=== PATIENT | female | born 2000 | race Two or more races ===

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

== ENCOUNTER 2022-08-28 10:02 | Emergency (ER) | payer MEDICAID ==
[~2022-08-28] VITALS: Ht 165.1 cm; Wt 53.3 kg
[2022-08-28 10:40] VITALS: BP 131/76
[2022-08-28 11:55] LABS: Basophils # (auto) 0 10 ^3/uL (0-0.2); Basophils % (auto) 0.3 % (0.0-2.0); Eosinophils # (auto) 0 10 ^3/uL (0-0.8); Hematocrit 35.7 % (36.0-46.0); Hemoglobin 12.4 g/dL (12.2-16.2); Lymphocytes # (auto) 0.4 10 ^3/uL (0.4-5.4); Lymphocytes % (auto) 3.8 % (10.0-50.0); Mean Corpuscular Hgb Conc. 34.7 g/dL (32.0-36.0); Mean Corpuscular Volume 92.2 fL (80.0-100.0); Monocytes # (auto) 0.1 10 ^3/uL (0-1.3); Monocytes % (auto) 1.3 % (0.0-12.0); Neutrophils # (auto) 10.5 10 ^3/uL (1.6-8.6); Neutrophils % (auto) 94.6 % (37.0-80.0); Red Blood Cells 3.88 10^6/uL (4.0-5.20); Red Cell Distribution Width 13.2 % (11.8-14.3); White Blood Cell 11.1 10^3/uL (4.4-10.8)
[2022-08-28] MEDS ORDERED: METOCLOPRAMIDE HCL 5MG/ml INJ 2ml VIAL IV ONE (12:15)
[2022-08-28] MEDS ORDERED: PYRIDOXINE HCL 50 MG TAB PO SCH (12:15)
[2022-08-28] MEDS ORDERED: LIDOCAINE VISCOUS 2% 15ML UD PO ONE (12:15)
[2022-08-28] MEDS ORDERED: D5W/SOD CHLO 0.9% 1,000 ML IV ONE (12:15)
[2022-08-28 12:23] LABS: Albumin 4.2 g/dL (3.4-5.0); Calcium 9.3 mg/dL (8.5-10.1); Potassium 3.4 mmol/L (3.5-5.1)
[2022-08-28 12:51] LABS: Bilirubin, Total 0.4 mg/dL (0.2-1.0); Total Protein 7.6 g/dL (6.4-8.2)
== END 2022-08-28 15:39 | disposition home or self-care (01) ==
LOC: ER 10:02
DX: O21.0 Mild hyperemesis gravidarum (principal); Z3A.10 10 weeks gestation of pregnancy
CPT/HCPCS: 36415; 80053; 82010; 85025; 96361; 96374; 99283; J2765; J7030

== ENCOUNTER 2023-10-15 10:40 | Emergency (ER) | payer MEDICAID ==
[~2023-10-15] VITALS: Ht 165.1 cm; Wt 57.0 kg
[~2023-10-15 10:40] MED LIST: NITR-87 PO; ZOFR4T PO
[2023-10-15] MEDS: SODIUM CHLORIDE 0.9% 1,000 ML IVB ONE (11:18)
[2023-10-15] MEDS: PANTOPRAZOLE 40 MG/10 ML VIAL INJ IV ONE (11:22)
[2023-10-15] MEDS: MORPHINE SULFATE 4 MG/ML SYR/VIAL IV ONE (11:22)
[2023-10-15] MEDS: PROCHLORPERAZINE EDISYLATE 5 MG/ML 2ML VIAL IV ONE (11:22)
[2023-10-15 11:25] LABS: Basophils # (auto) 0 10 ^3/uL (0-0.2); Basophils % (auto) 0.4 % (0.0-2.0); Eosinophils # (auto) 0 10 ^3/uL (0-0.8); Hematocrit 33.5 % (36.0-46.0); Hemoglobin 11.4 g/dL (12.2-16.2); Lymphocytes # (auto) 0.6 10 ^3/uL (0.4-5.4); Lymphocytes % (auto) 7.5 % (10.0-50.0); Mean Corpuscular Hemoglobin 31.7 pg (28.0-32.0); Mean Corpuscular Volume 93.2 fL (80.0-100.0); Monocytes # (auto) 0.2 10 ^3/uL (0-1.3); Monocytes % (auto) 2.2 % (0.0-12.0); Neutrophils # (auto) 6.7 10 ^3/uL (1.6-8.6); Neutrophils % (auto) 89.9 % (37.0-80.0); Red Cell Distribution Width 14.2 % (11.8-14.3); White Blood Cell 7.5 10^3/uL (4.4-10.8)
[2023-10-15 11:35] LABS: Chloride 108 mmol/L (98-107); Potassium 3.5 mmol/L (3.5-5.1); Sodium 138 mmol/L (136-145)
[2023-10-15 11:36] LABS: Anion Gap 12 (5-15); Calcium 9.7 mg/dL (8.7-10.4); Carbon Dioxide 18 mmol/L (20-30)
[2023-10-15 11:41] LABS: BUN/Creatinine Ratio 8.9 (10.0-20.0); Blood Urea Nitrogen 7 mg/dL (9-23); Glucose 141 mg/dL (74-106)
[2023-10-15 11:50] VITALS: PULSE 78; RESP 15; O2SAT 96
[2023-10-15 13:57] LABS: Urine Bacteria FEW /hpf (None Seen); Urine Blood 3+ /uL (Negative); Urine Clarity Clear (Clear); Urine Color Yellow (Yellow); Urine Mucus FEW (None Seen); Urine Protein, UAD 1+ (Negative); Urine Specific Gravity 1.025 (1.001-1.035); Urine Urobilinogen Normal (Negative); Urine WBC 5 /hpf (0 - 5)
[2023-10-15] MEDS ORDERED: ZOFR4T PO (14:11)
[2023-10-15 14:51] VITALS: BP 112/72; PULSE 92; RESP 19; O2SAT 100
== END 2023-10-15 14:52 | disposition home or self-care (01) ==
LOC: ER 10:40
DX: F12.90 Cannabis use, unspecified, uncomplicated (principal); R11.2 Nausea with vomiting, unspecified; R10.31 Right lower quadrant pain; N93.9 Abnormal uterine and vaginal bleeding, unspecified; Z98.890 Other specified postprocedural states; Z88.8 Allergy status to other drugs, medicaments and biological substances; Z79.899 Other long term (current) drug therapy
CPT/HCPCS: 36415; 80048; 81001; 85025; 96361; 96374; 96375; 99284; C9113; J0780; J2270; J7030

== ENCOUNTER 2023-12-12 19:54 | Emergency (ER) | payer MEDICAID ==
[~2023-12-12] VITALS: Ht 165.1 cm; Wt 54.9 kg
[~2023-12-12 19:54] MED LIST changes: +BACDST PO; +[UNRECOGNIZED DRUG - CODE] PO
[2023-12-12] MEDS ORDERED: ZOFR4T PO (21:09)
[2023-12-12] MEDS ORDERED: HYDR-4902 PO (21:09)
[2023-12-12] MEDS: ONDANSETRON HCL 4 MG/2 ML VIAL IM ONE (21:36)
[2023-12-12] MEDS: POTASSIUM CHL 20 Meq TABLET PO ONE (21:36)
[2023-12-12] MEDS: KETOROLAC TROMETH 30 MG/ML 1ML VIAL IM ONE (21:36)
[2023-12-12 21:52] VITALS: BP 130/74; PULSE 68; RESP 22; TEMP 98.6; O2SAT 100
== END 2023-12-12 21:54 | disposition home or self-care (01) ==
LOC: ER 19:54
DX: K52.9 Noninfective gastroenteritis and colitis, unspecified (principal); I10 Essential (primary) hypertension; F15.90 Other stimulant use, unspecified, uncomplicated; Z98.890 Other specified postprocedural states; Z88.8 Allergy status to other drugs, medicaments and biological substances; Z79.899 Other long term (current) drug therapy
CPT/HCPCS: 96372; 99284; J1885; J2405